=== PATIENT | female | born 1980 | race Caucasian/White ===

== ENCOUNTER 2016-11-03 02:15 | Emergency (ER) | payer SELFPAY ==
--- NOTE | ~2016-11-03 | ER ---
[facility] AGE: 36 Y [address] ROOM: [place] [address] LOCATION: [facility] ADMIT DATE: 11/03/2016 ER/Outpatient Report DISCHARGE DATE: 11/03/2016 FAMILY PHYSICIAN: PHYSICIAN, NO ATTENDING PHYSICIAN: Edmond Clark Time of Arrival: 0218 hours. Time of Evaluation: 0218 hours. CHIEF COMPLAINT: Chipped tooth. HISTORY OF PRESENT ILLNESS: The patient is a 36-year-old female who presents to the emergency department today with a chief complaint of chipped tooth. She reports she just woke up about 20 minutes prior to arrival. She gritted her teeth and part of her tooth chipped off. Pain is currently 10/10 in severity. It is sharp. It is worse whenever she touches it. PAST MEDICAL HISTORY: None. PAST SURGICAL HISTORY: Tubal ligation. SOCIAL HISTORY: The patient smokes half a pack per day for 18 years. Denies any alcohol or illicit drug use. ALLERGIES: NO KNOWN DRUG ALLERGIES. MEDICATIONS: None. PRIMARY CARE DOCTOR: None. REVIEW OF SYSTEMS: All systems are reviewed by myself and negative with the exception of those discussed in HPI and past medical history. PHYSICAL EXAMINATION: VITAL SIGNS: Weight 109 kg. Blood pressure 150/90, pulse 100, respiratory rate 18, temperature 97.4, oxygen saturation 95%. [facility] AGE: 36 Y [address] ROOM: [place] [address] LOCATION: [facility] ADMIT DATE: 11/03/2016 ER/Outpatient Report DISCHARGE DATE: 11/03/2016 FAMILY PHYSICIAN: PHYSICIAN, NO ATTENDING PHYSICIAN: Edmond Clark GENERAL: The patient is a 36-year-old female, appears stated age, in acute discomfort secondary to tooth pain. HEENT: Head normocephalic, atraumatic. Pupils are equal, round, and reactive to light. The patient's oral cavity has multiple dental caries in various stages of oral decay. The patient has a right lower tooth that is fractured, tooth #29. There is no evidence of periapical abscess. There is no Uday's. Oropharynx is otherwise clear. NECK: Supple. There is no nuchal rigidity. CARDIOVASCULAR: Tachycardic. No murmurs, rubs, or gallops. LUNGS: Clear to auscultation bilaterally. No wheezes, rales, or rhonchi. ABDOMEN: Soft, nontender, and nondistended. No rebound, rigidity, or guarding. MUSCULOSKELETAL: The patient moves all 4 extremities. SKIN: Warm and dry. There are no rashes or lesions noted. LABORATORY DATA AND X-RAYS: None. IMPRESSION: 1. Dental fractures. 2. Multiple dental caries. 3. Dentalgia. 4. Initial visit. EMERGENCY DEPARTMENT COURSE: The patient brought back to the examination room. Seen and evaluated by myself. History and physical performed as described above. I have placed an intraalveolar nerve block with 0.5% Marcaine with good anesthesia. I have discussed with the patient and her ex- that she needs to follow up with a dentist today. I have discussed return to care instructions including worsening symptoms or any other concerns to return to the emergency department as soon as possible. The patient is agreeable. I have written a prescription for penicillin as well as [place] for home. DISPOSITION: The patient discharged home in good condition. DO MICHELLE CHAVEZ/meaghan PATIENT'S NAME: SHERYL ALVARADO [facility] AGE: 36 Y [address] ROOM: [place] [address] LOCATION: [facility] ADMIT DATE: 11/03/2016 ER/Outpatient Report DISCHARGE DATE: 11/03/2016 FAMILY PHYSICIAN: , MIGUEL ATTENDING PHYSICIAN: Edmond Clark /[id number] d: 11/03/16 0440 t: 11/10/16 1008, OUTPATIENT REPORT
== END 2016-11-03 03:00 | disposition disaster alternative care site (69) ==
LOC: GMED 02:15
PROC: 3E0T3BZ Introduction of Anesthetic Agent into Peripheral Nerves and Plexi, Percutaneous Approach (ICD-10-PCS; principal; 2016-11-03)
DX: K03.81 Cracked tooth (principal); K02.9 Dental caries, unspecified; K08.89 Other specified disorders of teeth and supporting structures

== ENCOUNTER 2016-11-07 16:35 | Emergency (ER) | payer SELFPAY ==
--- NOTE | ~2016-11-07 | ER ---
PATIENT'S NAME: SHERYL ALVARADO [facility] AGE: 36 Y [address] ROOM: [place] [address] LOCATION: [facility] ADMIT DATE: 11/07/2016 ER/Outpatient Report DISCHARGE DATE: 11/07/2016 FAMILY PHYSICIAN: PHYSICIAN, NO ATTENDING PHYSICIAN: Nabil Chacko TIME SEEN: 1645 hours. CHIEF COMPLAINT: Right upper abdominal pain. HISTORY OF PRESENT ILLNESS: The patient is a 36-year-old female who said approximately 10 hours ago she had a sudden onset of right flank pain and right upper quadrant pain. She then became nauseated, had 2 emesis, said she had chills today, she has also had a normal bowel movement. Pain is described as somewhat dull and seems worse with movement. ALLERGIES: NONE. HOME MEDICATIONS: None. MEDICAL HISTORY: Negative for any chronic diseases. SURGERIES: She has had a tubal ligation and cholecystectomy. SOCIAL HISTORY: A smoker half-pack a day. Denies any current alcohol use. REVIEW OF SYSTEMS: GENERAL: Chills today. HEAD/ENT: No complaints of headache or sore throat. RESPIRATORY: Denies any cough or wheezing. CARDIOVASCULAR: No chest pain. GASTROINTESTINAL: Includes right flank and right upper quadrant pain. No diarrhea. Normal bowel movement. The pain was associated with some nausea and vomiting. GENITOURINARY: No dysuria. SKIN: No recent rash. PATIENT'S NAME: SHERYL ALVARADO [facility] AGE: 36 Y [address] ROOM: [place] [address] LOCATION: [facility] ADMIT DATE: 11/07/2016 ER/Outpatient Report DISCHARGE DATE: 11/07/2016 FAMILY PHYSICIAN: PHYSICIAN, NO ATTENDING PHYSICIAN: Nabil Chacko PHYSICAL EXAMINATION: VITAL SIGNS: On exam, blood pressure is 178/93, temp is 97, respiratory rate 18, pulse 76, and O2 sats 98%. GENERAL APPEARANCE: Alert, well-nourished, in no obvious distress. EYES: PERRLA. No icterus. NOSE: Septum midline. MOUTH: Teeth appeared in somewhat poor condition. Buccal membranes were moist. LUNGS: Sounded clear at the bases. ABDOMEN: Tender in the right flank and right upper quadrant. No masses palpated. There is no guarding and no rebound. Active bowel sounds. No other abdominal masses palpated. LABORATORY DATA: CMS: Normal values. CBC: White count was at 9.1, hemoglobin 13.2, and ANC was 6.8. Her urine was clear, no blood, and no signs of any infection. ASSESSMENT: Right flank and right upper quadrant pain. PLAN: She was given 2 [place] here in the emergency room, which did give her some relief. CT abdomen and pelvis was discussed. The patient opted not to have the CT done at this time. Recommendations were made just clear liquids the rest of the night. Follow up for repeat exam in 12 hours if not improving. The patient was given a script for [place] for pain if needed 1 or 2 every 4-6 hours. The patient verbalized understanding of our findings, recommendations, and agreed. MASON PHILLIP FOR MD SHENG ESQUEDA/meaghan /[id number] d: 11/08/16 0000 t: 11/24/16 0902, OUTPATIENT REPORT
[2016-11-07 17:00] LABS: BILIRUBIN URINE NEGATIVE (NEGATIVE); BLOOD URINE NEGATIVE /UL (NEGATIVE); COLOR URINE YELLOW (YELLOW); GLUCOSE URINE NEGATIVE (NEGATIVE); KETONE URINE NEGATIVE (NEGATIVE); LEUKOCYTES URINE NEGATIVE /UL (NEGATIVE); NITRITE URINE NEGATIVE (NEGATIVE); PROTEIN URINE NEGATIVE (NEGATIVE); TURBIDITY URINE CLEAR (CLEAR); UROBILINOGEN URINE NORMAL (NORMAL)
[2016-11-07 17:20] LABS: BASOPHIL # 0.1 K/uL (0.0-0.2); BASOPHIL % 0.7 %; EOSINOPHIL # 0.2 K/uL (0.0-0.5); EOSINOPHIL % 1.6 %; HEMATOCRIT 40.2 % (33.0-46.0); HEMOGLOBIN 13.2 g/dL (11.0-15.0); IMMATURE GRANULOCYTE % 0.2 %; LYMPHOCYTE # 1.4 K/uL (0.8-4.0); MCH 29.3 pg (27.0-34.0); MCHC 32.8 gm/dL (32.0-36.5); MCV 89.1 fl (83.0-98.0); MONOCYTE # 0.8 K/uL (0.0-1.0); MONOCYTE % 8.5 %; MPV 9.5 fl (9.4-12.4); NEUTROPHIL # (ANC) 6.8 K/uL (1.8-7.8); NRBC % 0 /100WBC (0-0.00); PLATELET COUNT 386 K/uL (150-450); RBC 4.51 M/uL (3.50-5.50); RDW-CV 14.6 % (11.9-14.6); WBC 9.1 K/uL (4.0-11.0)
[2016-11-07 17:39] LABS: ALBUMIN 3.7 gm/dL (3.5-5.0); ALK PHOS 81 IU/L (33-138); ALT 47 IU/L (12-78); ANION GAP 9.5 (10.0-19.0); AST 19 IU/L (10-40); BLOOD UREA NITROGEN 7 mg/dL (6-24); CALCIUM 8.6 mg/dL (8.5-10.5); CHLORIDE 110 mMol/L (96-110); CO2 27 mMol/L (22-32); CREATININE 0.6 mg/dL (0.5-1.1); ESTIMATED GFR (MDRD EQUATION) > 60; POTASSIUM 4.5 mMol/L (3.7-5.1); SODIUM 142 mMol/L (135-145); TOTAL BILIRUBIN 0.2 mg/dL (0.0-1.5); TOTAL PROTEIN 7.2 g/dL (6.0-8.4)
== END 2016-11-07 18:12 | disposition disaster alternative care site (69) ==
LOC: GMED 16:35
PROVIDERS: Physician Assistant Medical
DX: R10.11 Right upper quadrant pain (principal); F17.210 Nicotine dependence, cigarettes, uncomplicated; Z98.51 Tubal ligation status; Z90.49 Acquired absence of other specified parts of digestive tract